=== PATIENT | male | born 1970 | race Caucasian/White ===

== ENCOUNTER 2016-07-12 08:55 | Emergency (ER) | payer OTHER, MEDICAID ==
[2016-07-12 09:03] VITALS: RESP 16
[2016-07-12 09:28] LABS: COLOR YELLOW; LEUKOCYTE ESTERASE,URINE NEGATIVE (NEGATIVE); NITRITE,URINE NEGATIVE (NEGATIVE)
[2016-07-12 09:30] LABS: MUCUS TRACE /lpf (NONE-1+)
[2016-07-12 09:31] LABS: WBC,URINE NONE SEEN /hpf (0-3)
[2016-07-12] MEDS ORDERED: NS 1,000 ML IV ONE (09:38)
[2016-07-12] MEDS ORDERED: HYDROmorphONE/DILAUDID 1 MG/ML SYR ONE (09:43)
[2016-07-12] MEDS ORDERED: ONDANSETRON 4 MG/2 ML VIAL ONE (09:43)
--- NOTE | 2016-07-12 09:44 | EDPHY ---
H & P Stated Complaint: R lower back/flank pain,radiates to R groin;intermittent x "months" Time Seen by Provider: 07/12/16 09:35 HPI/ROS: CHIEF COMPLAINT: Right testicle and right groin pain x3 days HISTORY OF PRESENT ILLNESS: 46-year-old male arrives via private vehicle to the emergency department complaining of acute right inguinal in testicle pain for the past 3 days. Atraumatic. No straddle injury. He also feels mild pain in his right flank feels that the pain originated in his testicle. No urinary abnormality. No urethral No new sexual partners. No known history of STD. No nausea or vomiting. No history of nephrolithiasis REVIEW OF SYSTEMS: A ten point review of systems was performed and is negative with the exception of the items mentioned in the HPI PAST MEDICAL & SURGICAL HISTORY: T-cell lymphoblastic leukemia in remission SOCIAL HISTORY:nonsmoker PHYSICAL EXAM (Prior to examination, patient consented to physical exam, hands were washed and my usual and customary physical exam procedures followed) 1) GENERAL: Well-developed, well-nourished, alert and oriented. Appears uncomfortable . 2) HEAD: Normocephalic, atraumatic 3) HEENT: Pupils equal, round, reactive to light bilaterally. Sclera anicteric. 4) NECK: Full range of motion, no meningeal signs. 5) LUNGS: Clear auscultation bilaterally, no wheezes, no rhonchi, no retractions. 6) HEART: Regular rate and rhythm, no murmur, no heave, no gallop. 7) ABDOMEN: No guarding, no rebound, no focal tenderness, negative McBurney's, negative Castano's, negative Rovsing's, negative peritoneal sign, 8) MUSCULOSKELETAL: Moving all extremities, no focal areas of tenderness, no obvious trauma. No peripheral edema or discoloration. 9) BACK: No CVA tenderness, no midline vertebral tenderness, no fluctuance, no step-off, no obvious trauma, no visual or palpable abnormality. Patella Achilles reflexes intact to bilateral strength 5/5. 10) SKIN: No rash, no petechiae. 11) : Circumcised no urethral discharge bilateral testicles symmetrical, no high-riding testicle, cremasteric reflex present equal bilaterally DIFFERENTIAL DIAGNOSIS: in no particular include but limited to testicular torsion, epididymitis, hernia, nephrolithiasis, acute appendicitis - Personal History Current Tetanus Diphtheria and Acellular Pertussis (TDAP): Yes Tetanus Vaccine Date: < 10 years - Medical/Surgical History Hx Asthma: No Hx Chronic Respiratory Disease: No Hx Diabetes: No Hx Cardiac Disease: No Hx Renal Disease: No Hx Cirrhosis: No Hx Alcoholism: No Hx HIV/AIDS: No Hx Splenectomy or Spleen Trauma: No Other PMH: leukemia (in remission), depression/ back prob - Social History Smoking Status: Former smoker Constitutional: Initial Vital Signs Temperature (C) 37.1 C 07/12/16 09:01 Heart Rate 86 07/12/16 09:01 Respiratory Rate 16 07/12/16 09:01 Blood Pressure 122/86 H 07/12/16 09:01 O2 Sat (%) 96 07/12/16 09:01 O2 Delivery Mode Room Air Allergies/Adverse Reactions: promethazine HCl [From Phenergan] Allergy (Intermediate, Verified 03/29/16 07:55 ) extrapyramidal sx Home Medications: Medication Instructions Recorded Hydrocodone/APAP 5/325 [[place] 1 tab PO Q6 PRN #15 tab 07/12/16 5/325 (RX)] Medical Decision Making - Diagnostics Imagin:40 a.m.: Testicular ultrasound normal per Radiology interpretation with images reviewed by myself 11:40 a.m.: CT renal study is negative for stone or acute abnormality per Radiology interpretation. Images reviewed by myself ED Course/Re-evaluation: Patient has been re-evaluated with serial exams. Discussed case Dr. Liam Wong in the ER. Most recent exam at 11:50 a.m. he is complaining of radicular like pain in his right side. We discussed the diagnostic results showing no evidence of nephrolithiasis, normal testicular ultrasound. We discussed possibility of a sciatic/radicular pain. Doubt cauda equina or spinal infectious etiology. Plan will be pain control, discharge. - Data Points Laboratory Results: Laboratory Results 07/12/16 09:33 07/12/16 09:33 07/12/16 07/12/16 09:33 09:10 WBC 7.13 10^3/uL (3.80-9.50) RBC 5.53 10^6/uL (4.40-6.38) Hgb 18.0 H g/dL (13.7-17.5) Hct 49.8 % (40.0-51.0) MCV 90.1 fL (81.5-99.8) MCH 32.5 pg (27.9-34.1) MCHC 36.1 g/dL (32.4-36.7) RDW 12.6 % (11.5-15.2) Plt Count 170 10^3/uL (150-400) MPV 9.4 fL (8.7-11.7) Neut % (Auto) 62.8 % (39.3-74.2) Lymph % (Auto) 29.2 % (15.0-45.0) [place] % (Auto) 6.0 % (4.5-13.0) Eos % (Auto) 0.8 % (0.6-7.6) Baso % (Auto) 0.6 % (0.3-1.7) Nucleat RBC Rel Count 0.0 % (0.0-0.2) Absolute Neuts (auto) 4.48 10^3/uL (1.70-6.50) Absolute Lymphs (auto) 2.08 10^3/uL (1.00-3.00) Absolute Monos (auto) 0.43 10^3/uL (0.30-0.80) Absolute Eos (auto) 0.06 10^3/uL (0.03-0.40) Absolute Basos (auto) 0.04 10^3/uL (0.02-0.10) Absolute Nucleated RBC 0.00 10^3/uL (0-0.01) Immature Gran % 0.6 % (0.0-1.1) Immature Gran # 0.04 10^3/uL (0.00-0.10) Sodium 143 mEq/L (134-144) Potassium 4.6 mEq/L (3.5-5.2) Chloride 108 mEq/L (97-110) Carbon Dioxide 22 mEq/l (22-31) Anion Gap 13 mEq/L (8-16) BUN 21 mg/dL (7-23) Creatinine 0.9 mg/dL (0.7-1.3) Estimated GFR > 60 Glucose 89 mg/dL (70-100) Calcium 9.9 mg/dL (8.5-10.4) Total Bilirubin 0.9 mg/dL (0.1-1.4) Conjugated Bilirubin 0.5 mg/dL (0.0-0.5) Unconjugated Bilirubin 0.4 mg/dL (0.0-1.1) AST 37 IU/L (17-59) ALT 85 H IU/L (21-72) Alkaline Phosphatase 75 IU/L (38-126) Total Protein 7.5 g/dL (6.3-8.2) Albumin 5.1 H g/dL (3.5-5.0) Lipase 74.0 IU/L (23-300) Urine Color YELLOW Urine Appearance CLEAR Urine pH 5.0 (5.0-7.5) Ur Specific [place] 1.024 (1.002-1.030) Urine Protein NEGATIVE (NEGATIVE) Urine Ketones NEGATIVE (NEGATIVE) Urine Blood 1+ H (NEGATIVE) Urine Nitrate NEGATIVE (NEGATIVE) Urine Bilirubin NEGATIVE (NEGATIVE) Urine Urobilinogen NEGATIVE EU (0.2-1.0) Ur Leukocyte Esterase NEGATIVE (NEGATIVE) Urine RBC 1-3 /hpf (0-3) Urine WBC NONE SEEN /hpf (0-3) Ur Epithelial Cells NONE SEEN /lpf (NONE-1+) Urine Mucus TRACE /lpf (NONE-1+) Ur Culture Indicated? NOT INDICATED (NI) Urine Glucose NEGATIVE (NEGATIVE) Medications Given: Discontinued Medications Hydromorphone HCl (Dilaudid) 1 mg IVP EDNOW ONE Stop: 07/12/16 10:03 Last Admin: 07/12/16 10:03 Dose: 1 mg Hydromorphone HCl (Dilaudid) 1 mg IVP EDNOW ONE Stop: 07/12/16 12:02 Last Admin: 07/12/16 12:20 Dose: 1 mg Sodium Chloride (Ns) 1,000 mls @ 0 mls/hr IV ONCE ONE PRN Reason: Wide Open Stop: 07/12/16 09:39 Last Admin: 07/12/16 09:39 Dose: 1,000 mls Ketorolac Tromethamine (Toradol) 30 mg IVP EDNOW ONE Stop: 07/12/16 12:02 Last Admin: 07/12/16 12:20 Dose: 30 mg Miscellaneous Medication (Gi Cocktail) 45 ml PO EDNOW ONE Stop: 07/12/16 11:58 Last Admin: 07/12/16 12:10 Dose: 45 ml Ondansetron HCl (Zofran) 4 mg IVP EDNOW ONE Stop: 07/12/16 10:03 Last Admin: 07/12/16 10:03 Dose: 4 mg Departure - Departure Disposition: Home, Routine, Self-Care Clinical Impression: Low back pain Condition: Good Instructions: Acute Low Back Pain (ED) Additional Instructions: Seek medical attention if you develop new or worsening pain, if you develop bladder or bowel dysfunction, numbness around your perineum, foot drop, or any other symptoms that concern you. Referrals: Yamila Ramon MD [Primary Care Provider] - 1-2 days without fail Prescriptions: Hydrocodone/APAP 5/325 [[place] 5/325 (RX)] 1 tab PO Q6 PRN #15 tab PRN Reason: Pain, Severe
[2016-07-12 09:46] LABS: HEMATOCRIT 49.8 % (40.0-51.0); MEAN CELL HEMOGLOBIN 32.5 pg (27.9-34.1); MEAN CELL HEMOGLOBIN CONCENTR. 36.1 g/dL (32.4-36.7); MEAN CELL VOLUME 90.1 fL (81.5-99.8); RED BLOOD CELL COUNT 5.53 10^6/uL (4.40-6.38); RED CELL DISTRIBUTION WIDTH 12.6 % (11.5-15.2)
[2016-07-12 09:47] LABS: % IMMATURE GRANULYOCYTES 0.6 % (0.0-1.1); ABSOLUTE IMMATURE GRANULOCYTES 0.04 10^3/uL (0.00-0.10); ADD DIFF? NO; ADD MORPH? NO; ADD SCAN? NO; ATYPICAL LYMPHOCYTE FLAG 10 (0-99); FRAGMENT RBC FLAG 0 (0-99); LEFT SHIFT FLG 0 (0-99); LIPEMIA HEMOLYSIS FLAG 90 (0-99); MEAN PLATELET VOLUME 9.4 fL (8.7-11.7); PLATELET CLUMPS FLAG 20 (0-99); PLATELET COUNT 170 10^3/uL (150-400)
[2016-07-12] MEDS ORDERED: HYDROmorphONE/DILAUDID 1 MG/ML SYR IVP ONE ×2 (10:02→12:01)
[2016-07-12] MEDS ORDERED: ONDANSETRON 4 MG/2 ML VIAL IVP ONE (10:02)
[2016-07-12 10:04] LABS: ALANINE AMINOTRANSFERASE 85 IU/L (21-72); ALBUMIN 5.1 g/dL (3.5-5.0); ALKALINE PHOSPHATASE 75 IU/L (38-126); ANION GAP 13 mEq/L (8-16); ASPARTATE AMINOTRANSFERASE 37 IU/L (17-59); BILIRUBIN,TOTAL 0.9 mg/dL (0.1-1.4); BILIRUBIN-CONJUGATED 0.5 mg/dL (0.0-0.5); BILIRUBIN-UNCONJUGATED 0.4 mg/dL (0.0-1.1); CALCIUM 9.9 mg/dL (8.5-10.4); CARBON DIOXIDE 22 mEq/l (22-31); CHLORIDE 108 mEq/L (97-110); CREATININE 0.9 mg/dL (0.7-1.3); GLOMERULAR FILTRATION RATE > 60; GLUCOSE 89 mg/dL (70-100); POTASSIUM 4.6 mEq/L (3.5-5.2); SODIUM 143 mEq/L (134-144); TOTAL PROTEIN 7.5 g/dL (6.3-8.2)
--- NOTE | 2016-07-12 10:45 | US ---
Testicular Ultrasound History: Testicular pain. Findings: Right testicle measures 3.5 x 1.7 x 2.2 cm and the left testicle measures 3.3 x 1.5 x 2.2 c m. Both testicles are homogeneous and demonstrate no evidence for mass. Normal blood flow to both vonda ticles. Both epididymides are normal in appearance. No evidence for varicocele. No significant hydroc jose. Impression: Normal testicular ultrasound. Results called to Mikey Serna PA-C.
--- NOTE | 2016-07-12 11:49 | CT ---
Unenhanced CT Scan of the Abdomen and Pelvis (Renal Stone Protocol) Clinical History: 46-year-old male with a history of leukemia (which is in remission) who presents to the ED complaining of right-sided flank and groin pain for two days and had normal testicular sonogr aphy earlier this morning. Evaluate for nephrolithiasis or obstructive uropathy. The patient did have microscopic hematuria on urinalysis. Technique: Neither oral, retrograde rectal, nor IV contrast was administered. A multidetector unenhan pamella helical CT scan was obtained from the lung bases inferiorly through the proximal femora, with leobardo ges reformatted at 2.50 and 1.25 mm increments, and reviewed at a variety of window and level setting s. Parasagittal and paracoronal reconstructed images are reviewed on the workstation. The DFOV is 42 cm. A dose reduction protocol was used. Comparison Studies: Limited right upper quadrant abdominal sonography, dated February 13, 2012, CT imagi ng of the abdomen and pelvis dated October 26, 2011, and March 23, 2007 (retrieved from archive [facility]). Findings: Unenhanced CT Scan of the Abdomen: There are bibasilar dependent changes, as well as areas of linear parenchymal scarring. There is no pleural or pericardial effusion. There are no hepatic, pancreatic, splenic, adrenal, renal, or ureteral calculi. There are post-appendectomy clips present. The abdomina l aorta is normal in size. There are anterior and retroaortic renal veins. There is mild constipation . There is no abnormal small bowel dilatation. The spleen is at the upper limits of normal in size, m easuring 12.0 x 4.4 x 9.8 cm. There is no pathologically enlarged retroperitoneal or mesenteric jimmy opathy. There is a stable subcentimeter cortical cyst seen exophytically in the lower pole of the rig ht kidney, unchanged from previous exams. There is no hydronephrosis or perinephric fluid. The osseou s structures are notable for severe degenerative disk disease at L2-L3 and L5-S1. Unenhanced CT Scan of the Pelvis: The urinary bladder is moderately distended. There is no evidence o f distal ureterolithiasis or urinary bladder calculi. There are some phleboliths in the left hemipelv is. The prostate gland is mildly enlarged with some central prostatic calcifications. There is no dave e fluid. The seminal vesicles are unremarkable. Some rare sigmoid colon diverticula are seen. The oss eous structures are age-appropriate. Impression: 1. There is no evidence of nephrolithiasis or obstructive uropathy. 2. Mild constipation. 3. Status post appendectomy. Results were discussed with Mikey Serna PA-C. Attention: This CT examination is specifically designed to evaluate patients who are clinically susp ected of having acute obstructive uropathy. This examination does not use radiographic contrast, and as such, provides only a limited evaluation of the abdomen, pelvis, and retroperitoneum. If there i s further clinical suspicion for pathological conditions other than obstructive uropathy, a complete CT evaluation of the abdomen and pelvis utilizing intravenous, oral, and rectal contrast should be co nsidered. A test result has been communicated to a licensed care provider and documented in Mathew, 11:34:01 Kameron Cruz, 07/12/2016, [facility] Message ID [id number].
[2016-07-12] MEDS ORDERED: MAALOX/LIDO/HYOSC GI COCKTAIL 55 ML BOTTLE PO ONE (11:57)
[2016-07-12] MEDS ORDERED: KETOROLAC 30 MG/1 ML SDV IVP ONE (12:01)
[2016-07-12 13:05] VITALS: BP 130/76; PULSE 84; TEMP 98.1; O2SAT 93
== END 2016-07-12 13:18 | disposition home or self-care (01) ==
DX: M54.5 Low back pain (principal); Z87.891 Personal history of nicotine dependence
CPT/HCPCS: 74176; 76870; 93976; 96374; 96375; 96376; 99285; J1170; J1885; J2405

== ENCOUNTER 2016-11-17 10:33 | Emergency (ER) | payer MEDICAID ==
[2016-11-17 10:41] VITALS: O2SAT 99
[2016-11-17] MEDS ORDERED: HYDROCODONE/APAP 5/325 TAB PO ONE (11:25)
--- NOTE | 2016-11-17 11:28 | EDPHY ---
H & P Time Seen by Provider: 11/17/16 11:10 HPI/ROS: HPI: 46-year-old gentleman with chronic back pain well known to the ED presents to ED with chief concern neck and back pain that onset acutely yesterday. He sneezed and developed mid neck discomfort that extends into his upper thoracic spine. He has associated posterior right arm radiculopathy that radiates to his elbow. He did not fall or incur other trauma. Denies fever, chills, myalgias, dizziness, headache, URI symptoms, shortness of breath, chest pain, nausea, vomiting. He has chronic low back pain, and has had neck pain many times in the past, last time 6 weeks ago. He uses ibuprofen with some improvement at home for discomfort. Primary care provider Dr. Yamila Ramon ROS:10 point review of systems is negative other than as stated in HPI Past Medical/Surgical History: Chronic back pain, leukemia in remission x4 years Smoking Status: Former smoker Physical Exam: Vital signs stable, reviewed by me Constitutional: Alert, calm, cooperative. No acute distress. HEENT: Head normocephalic. PERRLA, EOMI. No pallor or injection. TMs pearly- faye without bulging or retraction. Nasal mucosa pink and moist. Pharynx without redness or evidence of tonsillar exudates. Neck: Supple, nontender. Full range of motion. Negative Kernig or Brudzinski's. Respiratory: Breathing unlabored. Lungs clear to auscultation bilaterally. Cardiovascular: Heart rate regular. S1-S2. No murmur, rub, or gallop. DP/PT pulses 2+ bilaterally. Gastrointestinal: Abdomen soft, nontender. Bowel sounds normoactive x4 quadrants. Neuro: Biceps and triceps DTRs 2+ bilaterally. Patellar and Achilles DTRs 2+ bilaterally. Strength 5+ in all extremities. No point tenderness to palpation of cervical, thoracic, or lumbar spine. Left and right paraspinous muscles with tenderness to palpation. No evidence of radiculopathy on straight leg raise bilaterally. Sensation intact to soft and pinprick in all regions of both legs and feet bilaterally. Constitutional: Initial Vital Signs Temperature (C) 36.8 C 11/17/16 10:37 Heart Rate 90 11/17/16 10:37 Respiratory Rate 18 11/17/16 10:37 Blood Pressure 133/77 H 11/17/16 10:37 O2 Sat (%) 99 11/17/16 10:37 O2 Delivery Mode Room Air Allergies/Adverse Reactions: promethazine HCl [From Phenergan] Allergy (Intermediate, Verified 11/17/16 10:41 ) extrapyramidal sx Home Medications: Medication Instructions Recorded Gabapentin 11/17/16 Hydrocodone/Acetaminophen [[place] 1 - 2 tab PO Q6H PRN #16 tab 11/17/16 5/325 (*)] Medical Decision Making ED Course/Re-evaluation: 46-year-old male presents to ED with acute onset neck and back pain that onset after he sneezed yesterday. There was no trauma. He has no fever, nausea, or vomiting. He has a history of chronic back pain, at times including his neck. He has a history of leukemia. This has been in remission x4 years. As there was no trauma, there is no significant midline tenderness, and symptoms onset acutely yesterday in the absence of fever, imaging will not be performed. He has a follow-up appointment with his primary care provider on Monday. Differential Diagnosis: Differential diagnosis includes but is not limited to musculoskeletal strain, diskitis, abscess, fracture, CA Departure - Departure Disposition: Home, Routine, Self-Care Clinical Impression: Neck pain Thoracic back pain Qualifiers: Chronicity: acute Back pain laterality: bilateral Qualified Code(s): M54.6 - Pain in thoracic spine Condition: Good Instructions: Back Pain (ED), Acute Neck Pain (ED) Additional Instructions: Plan: Follow up with primary care Monday for recheck without fail Continue to use ibuprofen as you have been at home-may use 600 mg every 6 hours with food, stay well hydrated while using For severe pain may use 1-2 [place] every 6 hours--Never drink or drive while taking this medication. This medication impairs decision making capacity so do not work or sign important documents while taking. This medication its constipating so drink plenty of fluids and consider an [id number] stool softener such as docusate sodium (Colace) while taking this medication. This medication has addictive properties. You should use the least amount for the shortest amount of time. [facility] do not refill narcotic pain medication prescriptions. This is a hospital policy. You will need to follow up as indicated for recheck for further narcotic refills. If you develop fever, vomiting return promptly for recheck Referrals: Yamila Ramon MD [Primary Care Provider] - As per Instructions Prescriptions: Hydrocodone/Acetaminophen [[place] 5/325 (*)] 1 - 2 tab PO Q6H PRN #16 tab PRN Reason: Pain, Moderate
[2016-11-17 11:49] VITALS: BP 119/80; PULSE 71; RESP 16; TEMP 97.9
== END 2016-11-17 11:50 | disposition home or self-care (01) ==
DX: M54.2 Cervicalgia (principal); M54.6 Pain in thoracic spine; Z87.891 Personal history of nicotine dependence

== ENCOUNTER 2016-12-31 07:39 | Emergency (ER) | payer MEDICAID ==
--- NOTE | 2016-12-31 07:50 | EDPHY ---
H & P Stated Complaint: Back pain Time Seen by Provider: 12/31/16 07:49 - Personal History Current Tetanus/Diphtheria Vaccine: Yes Current Tetanus Diphtheria and Acellular Pertussis (TDAP): Yes Tetanus Vaccine Date: 2015 - Medical/Surgical History Hx Asthma: No Hx Chronic Respiratory Disease: No Hx Diabetes: No Hx Cardiac Disease: No Hx Renal Disease: No Hx Cirrhosis: No Hx Alcoholism: No Hx HIV/AIDS: No Hx Splenectomy or Spleen Trauma: No Other PMH: ALL (in remission), depression, chronic back prob - Social History Smoking Status: Former smoker Constitutional: Initial Vital Signs Temperature (C) 36.5 C 12/31/16 07:42 Heart Rate 85 12/31/16 07:42 Respiratory Rate 17 12/31/16 07:42 Blood Pressure 133/85 H 12/31/16 07:42 O2 Sat (%) 97 12/31/16 07:42 O2 Delivery Mode Room Air Allergies/Adverse Reactions: promethazine HCl [From Phenergan] Allergy (Intermediate, Verified 11/17/16 10:41 ) extrapyramidal sx Home Medications: Medication Instructions Recorded Gabapentin 11/17/16 Hydrocodone/Acetaminophen [[place] 1 - 2 tab PO Q6H PRN #16 tab 11/17/16 5/325 (*)] Cyclobenzaprine [Flexeril 10 MG 10 mg PO TID PRN #15 tab 12/31/16 (*)] Ibuprofen [Motrin] 800 mg PO Q8 #20 tab 12/31/16 oxyCODONE IR [Oxycodone Ir (*)] 5 - 10 mg PO Q6 PRN #20 tab 12/31/16 Medical Decision Making ED Course/Re-evaluation: CHIEF COMPLAINT: Back pain with radiculopathy HISTORY OF PRESENT ILLNESS: The patient is a 46 y/o male, with a history of chronic back pain and ALL, complaining of back pain with right-sided radiculopathy onset last night. He cannot identify an obvious precipitating cause. His pain extends down posterior thigh, calf, and into toes with dull aching along anterior thigh. His right leg also feels weak, but he has been able to walk despite the pain. He denies bowel or bladder symptoms. He says he saw neurosurgeon a few years ago for this back pain and had imaging done, but never heard the results or received further follow up. Additionally, he notes he has started to see petechiae on his arms and legs that look similar to skin symptoms he had while his ALL was active. He denies pruritic rash or other allergic symptoms. REVIEW OF SYSTEMS: A 10 point review of systems was performed and is negative with the exception of the elements mentioned in the history of present illness. PHYSICAL EXAM: HR, BP, O2 Sat, RR. Temp noted General Appearance: Alert, well hydrated, appropriate, and non-toxic appearing. Head: Atraumatic without scalp tenderness or obvious injury Eyes: Pupils equal, round, reactive to light and accommodation, EOMI, no trauma , no injection. Nose: Atraumatic, no rhinorrhea, clear. Throat: mucus membranes moist. Neck: Supple, nontender, no lymphadenopathy. Respiratory: No retractions, no distress, no wheezes, and no accessory muscle use. Lungs are clear to auscultation bilaterally. Cardiovascular: Regular rate and rhythm, no murmurs, rubs, or gallops. Good capillary refill all extremities. Gastrointestinal: Abdomen is soft, nontender, non-distended, no masses, no rebound, no guarding, no peritoneal signs. Musculoskeletal: Normal active ROM of all extremities, atraumatic. Neurological: Alert, appropriate, and interactive. The patient has normal DTRs and non-focal cranial nerves, motor, sensory, and cerebellar exam. Skin: No rashes, good turgor, no nodules on palpation. Small, red, non- blanching macular spots located diffusely on all limbs. 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 MEDICAL DECISION MAKING: This is a 46 y/o male with a history of chronic back pain and ALL that is currently in remission presenting with a 12-hour history of worsening lower back pain and new associated right leg radiculopathy. His exam is mostly unremarkable with the exception of diffuse, small, erythematous, and non- blanching macules on his skin. He reports these are similar to petechiae he had while his ALL was active. His neuro exam is normal. Plan for symptomatic treatment with 800mg PO ibuprofen and 1 tab Percocet in addition to basic labs including CBC, CHEM, and LFT to review platelet counts. Platelets slightly low at 139. I discussed this with the patient. He will receive scripts for ibuprofen and OxyIR and recommendation to follow up with a neurosurgeon next week. Return precautions given. He is comfortable with this plan. - Data Points Laboratory Results: Laboratory Results 12/31/16 08:40 12/31/16 08:40 12/31/16 12/31/16 08:40 08:40 WBC 5.49 10^3/uL 10^3/uL (3.80-9.50) RBC 5.46 10^6/uL 10^6/uL (4.40-6.38) Hgb 17.3 g/dL g/dL (13.7-17.5) Hct 48.6 % % (40.0-51.0) MCV 89.0 fL fL (81.5-99.8) MCH 31.7 pg pg (27.9-34.1) MCHC 35.6 g/dL g/dL (32.4-36.7) RDW 12.9 % % (11.5-15.2) Plt Count 139 10^3/uL L 10^3/uL (150-400) MPV 9.5 fL fL (8.7-11.7) Neut % (Auto) 57.3 % % (39.3-74.2) Lymph % (Auto) 32.6 % % (15.0-45.0) [place] % (Auto) 8.0 % % (4.5-13.0) Eos % (Auto) 0.7 % % (0.6-7.6) Baso % (Auto) 0.9 % % (0.3-1.7) Nucleat RBC Rel Count 0.0 % % (0.0-0.2) Absolute Neuts (auto) 3.14 10^3/uL 10^3/uL (1.70-6.50) Absolute Lymphs (auto) 1.79 10^3/uL 10^3/uL (1.00-3.00) Absolute Monos (auto) 0.44 10^3/uL 10^3/uL (0.30-0.80) Absolute Eos (auto) 0.04 10^3/uL 10^3/uL (0.03-0.40) Absolute Basos (auto) 0.05 10^3/uL 10^3/uL (0.02-0.10) Absolute Nucleated RBC 0.00 10^3/uL 10^3/uL (0-0.01) Immature Gran % 0.5 % % (0.0-1.1) Immature Gran # 0.03 10^3/uL 10^3/uL (0.00-0.10) Sodium 145 mEq/L H mEq/L (134-144) Potassium 4.0 mEq/L mEq/L (3.5-5.2) Chloride 108 mEq/L mEq/L (97-110) Carbon Dioxide 23 mEq/l mEq/l (22-31) Anion Gap 14 mEq/L mEq/L (8-16) BUN 25 mg/dL H mg/dL (7-23) Creatinine 1.0 mg/dL mg/dL (0.7-1.3) Estimated GFR > 60 Glucose 91 mg/dL mg/dL (70-100) Calcium 10.6 mg/dL H mg/dL (8.5-10.4) Total Bilirubin 1.0 mg/dL mg/dL (0.1-1.4) Conjugated Bilirubin 0.4 mg/dL mg/dL (0.0-0.5) Unconjugated Bilirubin 0.6 mg/dL mg/dL (0.0-1.1) AST 35 IU/L IU/L (17-59) ALT 77 IU/L H IU/L (21-72) Alkaline Phosphatase 57 IU/L IU/L (38-126) Total Protein 7.8 g/dL g/dL (6.3-8.2) Albumin 5.1 g/dL H g/dL (3.5-5.0) Medications Given: Discontinued Medications Ibuprofen (Motrin) 800 mg PO EDNOW ONE Stop: 12/31/16 08:25 Last Admin: 12/31/16 08:45 Dose: 800 mg Oxycodone/Acetaminophen (Percocet 5/325) 2 tab PO EDNOW ONE Stop: 12/31/16 08:25 Last Admin: 12/31/16 08:46 Dose: 2 tab Departure - Departure Disposition: Home, Routine, Self-Care Clinical Impression: Lumbar back pain with radiculopathy affecting right lower extremity Condition: Good Instructions: Lumbar Radiculopathy (ED) Additional Instructions: 1. Take 800mg ibuprofen every 6-8 hours as needed for pain over the next 5-7 days. 2. Take OxyIR as prescribed if needed for severe pain. 3. If you are willing to take steroids, I recommend taking 40mg prednisone daily for 5 days. 4. Follow up with Dr. Hyman, neurosurgeon, next week for further evaluation of your pain. 5. Return to the ED for bowel or bladder incontinence, leg weakness, or other worsening of condition. Referrals: NONE *PRIMARY CARE P,. [Primary Care Provider] - As per Instructions Enmanuel Hyman MD [Medical Doctor] - As per Instructions Prescriptions: Cyclobenzaprine [Flexeril 10 MG (*)] 10 mg PO TID PRN #15 tab PRN Reason: Spasms Ibuprofen [Motrin] 800 mg PO Q8 #20 tab oxyCODONE IR [Oxycodone Ir (*)] 5 - 10 mg PO Q6 PRN #20 tab PRN Reason: Pain, Severe Report Scribed for: Ry Tam Report Scribed by: Radha Deal Date of Report: 12/31/16 Time of Report: 08:29
[2016-12-31] MEDS ORDERED: OXYCODONE/APAP 5/325 TAB PO ONE (08:24)
[2016-12-31] MEDS ORDERED: IBUPROFEN 800 MG TAB PO ONE (08:24)
[2016-12-31] MEDS ORDERED: IBUPROFEN 200 MG TAB PO ONE (08:34)
[2016-12-31 08:51] LABS: % IMMATURE GRANULYOCYTES 0.5 % (0.0-1.1); ABSOLUTE IMMATURE GRANULOCYTES 0.03 10^3/uL (0.00-0.10); ADD DIFF? NO; ADD MORPH? NO; ADD SCAN? NO; ATYPICAL LYMPHOCYTE FLAG 10 (0-99); FRAGMENT RBC FLAG 0 (0-99); HEMATOCRIT 48.6 % (40.0-51.0); HEMOGLOBIN 17.3 g/dL (13.7-17.5); LEFT SHIFT FLG 0 (0-99); LIPEMIA HEMOLYSIS FLAG 90 (0-99); MEAN CELL HEMOGLOBIN 31.7 pg (27.9-34.1); MEAN CELL HEMOGLOBIN CONCENTR. 35.6 g/dL (32.4-36.7); MEAN PLATELET VOLUME 9.5 fL (8.7-11.7); PLATELET CLUMPS FLAG 0 (0-99); PLATELET COUNT 139 10^3/uL (150-400); RED BLOOD CELL COUNT 5.46 10^6/uL (4.40-6.38); RED CELL DISTRIBUTION WIDTH 12.9 % (11.5-15.2)
[2016-12-31 09:11] LABS: ALANINE AMINOTRANSFERASE 77 IU/L (21-72); ALBUMIN 5.1 g/dL (3.5-5.0); ALKALINE PHOSPHATASE 57 IU/L (38-126); ANION GAP 14 mEq/L (8-16); ASPARTATE AMINOTRANSFERASE 35 IU/L (17-59); BILIRUBIN-CONJUGATED 0.4 mg/dL (0.0-0.5); BILIRUBIN-UNCONJUGATED 0.6 mg/dL (0.0-1.1); CALCIUM 10.6 mg/dL (8.5-10.4); CARBON DIOXIDE 23 mEq/l (22-31); CHLORIDE 108 mEq/L (97-110); GLOMERULAR FILTRATION RATE > 60; GLUCOSE 91 mg/dL (70-100); SODIUM 145 mEq/L (134-144); TOTAL PROTEIN 7.8 g/dL (6.3-8.2)
[2016-12-31 09:49] VITALS: BP 119/76; PULSE 64; RESP 15; TEMP 98.8; O2SAT 93
== END 2016-12-31 09:48 | disposition home or self-care (01) ==
DX: M54.16 Radiculopathy, lumbar region (principal); Z87.891 Personal history of nicotine dependence

== ENCOUNTER 2017-02-25 07:44 | Emergency (ER) | payer MEDICAID ==
[2017-02-25] MEDS ORDERED: OXYCODONE/APAP 5/325 TAB PO ONE (08:23)
[2017-02-25] MEDS ORDERED: KETOROLAC 15 MG/1 ML SDV IM ONE (08:23)
--- NOTE | 2017-02-25 08:28 | EDPHY ---
H & P Stated Complaint: Chronic lower back pain "'twisted wrong" Source: Patient Exam Limitations: No limitations - Personal History Current Tetanus Diphtheria and Acellular Pertussis (TDAP): Yes Tetanus Vaccine Date: 2015 - Medical/Surgical History Hx Asthma: No Hx Chronic Respiratory Disease: No Hx Diabetes: No Hx Cardiac Disease: No Hx Renal Disease: No Hx Cirrhosis: No Hx Alcoholism: No Hx HIV/AIDS: No Hx Splenectomy or Spleen Trauma: No Other PMH: ALL (in remission), depression, chronic back pain - Social History Smoking Status: Former smoker Time Seen by Provider: 02/25/17 08:03 HPI/ROS: CHIEF COMPLAINT: low back pain HISTORY OF PRESENT ILLNESS: 47-year-old male presents emergency department complaining of acute on chronic low back pain. Patient states he has a known herniated discs and has been told by Neurosurgery he can have surgery. Patient states about once per month his back "goes out". He reports constant low back pain though yesterday he was reaching up to grab a glass out of his covered and twisting and he had worsening left-sided low back pain and spasms. He denies radiation down his legs, no loss of control of his bowel or bladder, no numbness to his groin. He denies leg weakness. Patient reports ibuprofen is not helpful. He denies abdominal pain, chest pain or shortness of breath. No fevers. REVIEW OF SYSTEMS: A comprehensive 10 point review of systems is otherwise negative aside from elements mentioned in the history of present illness. (Nallely Kitchen) - Physical Exam Exam: Physical Exam Gen: Alert and Oriented, NAD HEENT: PERRL, moist mucous membranes NECK: no meningismus CV: regular rate and regular rhythm PULM: CTAB, no wheezes ABDOMEN: soft, non tender to palpation, BS present, no mass BACK: Midline lumbar tenderness to palpation, bilateral lumbar paraspinal tenderness to palpation, bilateral SI joint tenderness to palpation NEURO: Neurologically grossly intact, 2/4 deep tendon reflexes patellar and Achilles, 5/5 strength bilateral lower extremities, negative straight leg raise. EXTREMITIES: normal appearing SKIN: no rash or break in skin on exposed skin PSYCH: answers questions appropriately. (Nallely Kitchen) Constitutional: Initial Vital Signs Temperature (C) 36.8 C 02/25/17 07:51 Heart Rate 87 02/25/17 07:51 Respiratory Rate 14 02/25/17 07:51 Blood Pressure 153/94 H 02/25/17 07:51 O2 Sat (%) 95 02/25/17 07:51 O2 Delivery Mode Room Air Allergies/Adverse Reactions: promethazine HCl [From Phenergan] Allergy (Intermediate, Verified 11/17/16 10:41 ) extrapyramidal sx Home Medications: Medication Instructions Recorded Gabapentin 11/17/16 Ibuprofen [Motrin] 800 mg PO Q8 #20 tab 12/31/16 Lidocaine 5% [Lidoderm 5% Patch 1 ea TD DAILY #5 patch 02/25/17 (*)] Methocarbamol [Robaxin-750] 750 - 1,500 mg PO QID PRN #20 02/25/17 tablet Medical Decision Making ED Course/Re-evaluation: Patient with no evidence of cauda equina syndrome or spinal abscess. A lidocaine patch was placed, she was given IM Toradol and a oral methocarbamol. Patient is discharged with a prescription for lidocaine patches and methocarbamol. I have discussed with him the importance of following up with his primary care doctor to get a referral for physical therapy which I think will be very helpful for his discomfort. Patient is given return precautions for any neurovascular compromise. (Nallely Kitchen) Differential Diagnosis: The differential diagnosis for the patient's back pain included but was not limited to musculo-skeletal pain, epidural abscess, herniated disk, spinal fracture, cauda equina and intra-abdominal causes including urinary system. ( Nallely Kitchen) Other Provider: The patient was evaluated and managed by the Physician Turf Manager. My co- signature indicates that I have reviewed this chart and I agree with the findings and plan of care as documented. I am the secondary supervising physician. (Yovana Chavez) - Data Points Medications Given: Discontinued Medications Ketorolac Tromethamine (Toradol) 30 mg IM EDNOW ONE Stop: 02/25/17 08:24 Last Admin: 02/25/17 08:31 Dose: 30 mg Lidocaine (Lidoderm 5%) 1 ea TD DAILY KARMEN Stop: 08/24/17 08:59 Last Admin: 02/25/17 08:31 Dose: 1 ea Oxycodone/Acetaminophen (Percocet 5/325) 1 tab PO EDNOW ONE Stop: 02/25/17 08:24 Last Admin: 02/25/17 08:31 Dose: 1 tab Departure - Departure Disposition: Home, Routine, Self-Care Clinical Impression: Acute exacerbation of chronic low back pain Condition: Good Instructions: Chronic Back Pain (ED), Lower Back Exercises (ED) Additional Instructions: Take 600 mg of ibuprofen 3 times per day with food, takes methocarbamol every 8 hours as needed for muscle spasms. Use lidocaine patches as directed as needed. Ice or heat whichever feels better, gentle range of motion exercises, core strengthening exercises daily. Follow up with [facility] for referral to physical therapy. Return to the emergency department for any loss of control of your bowel or bladder, numbness to your groin, fevers. Referrals: [facility],. [Clinic] - As per Instructions Prescriptions: Lidocaine 5% [Lidoderm 5% Patch (*)] 1 ea TD DAILY #5 patch Methocarbamol [Robaxin-750] 750 - 1,500 mg PO QID PRN #20 tablet PRN Reason: Spasms
[2017-02-25 08:40] VITALS: BP 139/89; PULSE 81; RESP 16; TEMP 97.5; O2SAT 98
[2017-02-25] MEDS ORDERED: LIDOCAINE 5% 1 EA PATCH TD SCH (09:00)
[2017-02-25] MEDS ORDERED: PATCH REMOVAL 1 EA PATCH TD SCH (21:00)
== END 2017-02-25 08:43 | disposition home or self-care (01) ==
DX: S39.92XA Unspecified injury of lower back, initial encounter (principal); G89.29 Other chronic pain; Z87.891 Personal history of nicotine dependence; X50.9XXA Other and unspecified overexertion or strenuous movements or postures, initial encounter; Y99.8 Other external cause status; Y93.89 Activity, other specified
CPT/HCPCS: J1885

== ENCOUNTER 2017-07-25 12:11 | Emergency (ER) | payer MEDICAID ==
[2017-07-25 13:33] VITALS: TEMP 98.1
[2017-07-25] MEDS ORDERED: ALBUTEROL 3 ML DEYVIAL IH ONE (14:13)
[2017-07-25] MEDS ORDERED: IPRATROPIUM/ALBUTEROL 3 ML DEYVIAL IH ONE (14:13)
[2017-07-25] MEDS ORDERED: methylPREDNISolone SOD SUCC 125 MG/2 ML VIAL IVP ONE (14:13)
[2017-07-25] MEDS ORDERED: NS 1,000 ML IV ONE (14:13)
--- NOTE | 2017-07-25 14:13 | EDPHY ---
H & P Stated Complaint: flu like symptoms Time Seen by Provider: 07/25/17 13:41 HPI/ROS: CHIEF COMPLAINT: "I have a really bad cough and it's become really hurtful" HISTORY OF PRESENT ILLNESS: The patient is a 47 y/o male with a history of leukemia currently in remission complaining of a persistent cough over the last 13 days. He initially developed a fever, nasal congestion, and sneezing and then a subsequent cough. His last measured fever was 5 days ago. He says, "I can 't stop coughing," though he is feeling almost too weak to cough now. He has associated right anterior pleuritic rib pain when coughing and sometimes produces dark green phlegm. He had minor alleviation with OTC cough medications. He denies respiratory disease or cardiac disease history. No sore throat, chills, chest pain, shortness of breath, palpitations, vomiting , diarrhea, urinary complaints, headache, lightheadedness. REVIEW OF SYSTEMS: Aside from elements discussed in the HPI, a comprehensive 10-point review of systems was reviewed and is negative. PAST MEDICAL HISTORY: 1. Chronic back pain 2. ALL - in remission SOCIAL HISTORY: Nonsmoker. Lives in [place]. Disabled. VITAL SIGNS: Reviewed by me. 94% on room air. GENERAL: Well-developed, well-nourished, resting comfortably in no respiratory distress. HEENT: Atraumatic. Eyes: No icterus, no injection. Mouth: moist mucous membranes. Pharyngeal erythema, no lesions. Neck: supple with no adenopathy. LUNGS: Coarse lungs sounds with mild expiratory wheezes. No rhonchi or rales. CARDIAC: Regular rate and rhythm, no rubs, murmurs or gallops. ABDOMEN: Soft, nontender, nondistended, bowel sounds normal. BACK: No CVA tenderness. EXTREMITIES: No trauma. No edema. Range of motion is normal throughout. NEURO: Alert and oriented, grossly nonfocal. SKIN: Warm and dry, no rash. PSYCHIATRIC: Normal mentation, no agitation. Portions of this note were transcribed by a biomedical photographer. I personally performed a history, physical exam, medical decision making, and confirmed accuracy of information the transcribed note. - Personal History Current Tetanus/Diphtheria Vaccine: Yes Current Tetanus Diphtheria and Acellular Pertussis (TDAP): Yes Tetanus Vaccine Date: 2015 - Medical/Surgical History Hx Asthma: No Hx Chronic Respiratory Disease: No Hx Diabetes: No Hx Cardiac Disease: No Hx Renal Disease: No Hx Cirrhosis: No Hx Alcoholism: No Hx HIV/AIDS: No Hx Splenectomy or Spleen Trauma: No Other PMH: ALL (in remission), depression, chronic back pain - Social History Smoking Status: Former smoker Constitutional: Initial Vital Signs Temperature (C) 36.9 C 07/25/17 12:29 Heart Rate 78 07/25/17 12:29 Respiratory Rate 16 07/25/17 12:29 Blood Pressure 137/97 H 07/25/17 12:29 O2 Sat (%) 94 07/25/17 12:29 O2 Delivery Mode Room Air Allergies/Adverse Reactions: promethazine HCl [From Phenergan] Allergy (Intermediate, Verified 07/25/17 12:28 ) extrapyramidal sx Home Medications: Medication Instructions Recorded Gabapentin 11/17/16 Ibuprofen [Motrin] 800 mg PO Q8 #20 tab 12/31/16 AZITHROMYCIN [Z-PACK] 250 - 500 mg PO DAILY #6 tab 07/25/17 Albuterol Hfa Anes Only [Proair 2 puffs IH QID #1 mdi 07/25/17 Hfa Anes Only] Benzonatate [Tessalon Pearles (RX)] 100 mg PO TID PRN #20 cap 07/25/17 Hydrocodone/APAP 5/325 [[place] 1 tab PO Q6H PRN #10 tab 07/25/17 5/325 (RX)] predniSONE [prednisone 10mg (RX)] 40 mg PO DAILY 3 Days tab 07/25/17 Medical Decision Making - Diagnostics Imaging: I viewed and interpreted images myself ED Course/Re-evaluation: This is a 47 y/o male with a history of ALL currently in remission who presents with a 13-day history of persistent cough with pleuritic right-sided rib pain. He has coarse breath sounds and mild expiratory wheezes. Presentation is indicative of URI or possibly flu. Plan for IV, CBC to check cell counts, flu swab, chest x-ray, and symptom management. Duo neb, 125mg IV Solumedrol, and 1L IV NS administered. Chest x-ray: bronchitis. Atelectasis is unchanged from prior x-ray. Albuterol neb administered. Reassessed patient and discussed work up. His x-ray shows bronchitis, no infiltrate. Cell counts look good. He will be discharged with scripts for Z-pack , albuterol inhaler, and Tessalon Perls with standard bronchitis care and follow up instructions. He has Decadron at home that he will use in lieu of the prednisone I offered. Return precautions discussed. He is comfortable with this plan. Differential Diagnosis: Differential diagnosis for the patient's cough was considered including but not limited to viral versus bacterial bronchitis, asthma, COPD, upper respiratory infection, lower respiratory infection, influenza, and bronchospasm. - Data Points Laboratory Results: Laboratory Results 07/25/17 14:15 07/25/17 14:15 Medications Given: Discontinued Medications Albuterol (Proventil Neb) 3 ml IH EDNOW ONE Stop: 07/25/17 14:14 Last Admin: 07/25/17 14:34 Dose: 3 ml Albuterol/Ipratropium (Duoneb) 3 ml IH EDNOW ONE Stop: 07/25/17 14:14 Last Admin: 07/25/17 14:34 Dose: 3 ml Sodium Chloride (Ns) 1,000 mls @ 0 mls/hr IV ONCE ONE; Wide Open PRN Reason: Protocol Stop: 07/25/17 14:14 Last Admin: 07/25/17 14:34 Dose: 1,000 mls Methylprednisolone Sodium Succinate (Solu-Medrol) 125 mg IVP EDNOW ONE Stop: 07/25/17 14:14 Last Admin: 07/25/17 14:34 Dose: 125 mg Departure - Departure Disposition: Home, Routine, Self-Care Clinical Impression: Acute bronchitis Qualifiers: Bronchitis organism: unspecified organism Qualified Code(s): J20.9 - Acute bronchitis, unspecified Condition: Good Instructions: Benzonatate (By mouth), Albuterol (By breathing), Azithromycin ( By mouth), Acute Bronchitis (ED) Additional Instructions: 1. Take azithromycin as prescribed. Be sure to complete the entire prescription even if you feel better. 2. Use albuterol inhaler as prescribed for coughing and shortness of breath. 3. Use Tessalon Perls as prescribed for cough. You have also been given hydrocodone tablets which will be helpful for cough especially at night. 4. Take 4-8mg of your Decadron daily for 3 days. 5. Take ibuprofen and Tylenol as directed on the packaging for pain or fever over the next few days. 6. Follow up with your primary care provider for unimproved symptoms over the next 3-5 days. 7. Return to the ED for worsening of condition. Referrals: [facility],. [Clinic] - As per Instructions Prescriptions: Albuterol Hfa Anes Only [Proair Hfa Anes Only] 2 puffs IH QID #1 mdi AZITHROMYCIN [Z-PACK] 250 - 500 mg PO DAILY #6 tab Benzonatate [Tessalon Pearles (RX)] 100 mg PO TID PRN #20 cap PRN Reason: Cough Hydrocodone/APAP 5/325 [[place] 5/325 (RX)] 1 tab PO Q6H PRN #10 tab PRN Reason: Pain predniSONE [prednisone 10mg (RX)] 40 mg PO DAILY 3 Days tab Report Scribed for: Yovana Chavez Report Scribed by: Radha Deal Date of Report: 07/25/17 Time of Report: 14:13
[2017-07-25 14:42] LABS: PLATELET COUNT 251 10^3/uL (150-400)
[2017-07-25 15:06] VITALS: PULSE 65; O2SAT 98
[2017-07-25 15:19] VITALS: BP 159/99; RESP 18
== END 2017-07-25 15:24 | disposition home or self-care (01) ==
DX: J20.9 Acute bronchitis, unspecified (principal); E86.9 Volume depletion, unspecified; Z87.891 Personal history of nicotine dependence
CPT/HCPCS: 96374; J2930; J7613

== ENCOUNTER 2017-10-31 11:36 | Emergency (ER) | payer MEDICAID ==
[2017-10-31 11:43] VITALS: BP 141/92
--- NOTE | 2017-10-31 12:26 | EDPHY ---
General Time Seen by Provider: 10/31/17 12:21 Narrative: CHIEF COMPLAINT: Back pain HISTORY OF PRESENT ILLNESS: The patient complains of 2 days history of back pain. This is lower back and radiating to the right side. Gradual onset. Constant duration. He thinks this started while he was washing dishes. He has a history of back pain over the past 5 years, when he was 1st diagnosed leukemia. He has no numbness or tingling. He has no weakness. No incontinence of bowel or bladder. No difficulty ambulating. He has significant pain when doing any kind of movement or palpation. No trauma or injury. No history of IV drug abuse. No fever. No recent surgery or spinal injections per no other associated complaints or modifying factors. REVIEW OF SYSTEMS: Ten systems reviewed and are negative unless otherwise noted in the HPI PCP: [facility] SPECIALISTS: None currently PAST MEDICAL HISTORY: Leukemia, chronic back pain, Raynaud's phenomenon PAST SURGICAL HISTORY: No recent surgeries SOCIAL HISTORY: Lives and works here independently. FAMILY HISTORY: Noncontributory EXAMINATION General Appearance: Alert, no distress Head: normocephalic, atraumatic Eyes: Pupils equal and round, no conjunctival pallor or injection ENT, Mouth: Mucous membranes moist Neck: Normal inspection, supple, non-tender Respiratory: No retractions or distress. Back: Tenderness of the lumbar spine, primarily right of midline. No crepitus , step-off or deformity. Neurological: A&O, nonfocal, normal gait. Patellar reflexes symmetric. Strength of the knees and ankles is symmetric at 5/5. Strength of the great toe symmetric. No footdrop Skin: Warm and dry, no rash. No petechiae or purpura. No fluctuance or cellulitis overlying the spine Extremities: Nontender, no pedal edema Psychiatric: Mood and affect normal DIFFERENTIAL DIAGNOSES: Including but not limited to symmetric range of motion extremities. MDM: 12:40 p.m. Acute lumbar back pain with right-sided radiculopathy, but no evidence of acute cord compression or cauda equina. He is fully ambulatory without assistance. He is neuro intact. I have run a HEAV[employer] DUTY TRUCK MECHANIC report on the patient and his information is accurate. I do feel he would benefit from short course of oral medications topical lidocaine patches. He has instructions to contact [facility] and to discuss the possibility of referral to Neurosurgery/spine orthopedist. We discussed ED precautions for worsening pain, numbness, tingling, weakness, continence of bowel or bladder. He is comfortable this plan and discharged home stable condition. SUPERVISION: This patient was independently evaluated without direct involvement of or examination by the attending physician. - History Smoking Status: Former smoker - Objective Vital Signs: Initial Vital Signs Temperature (C) 97.5 F 10/31/17 11:41 Heart Rate 80 10/31/17 11:41 Respiratory Rate 16 10/31/17 11:41 Blood Pressure 141/92 H 10/31/17 11:41 O2 Sat (%) 97 10/31/17 11:41 O2 Delivery Mode Room Air Allergies/Adverse Reactions: promethazine HCl [From Phenergan] Allergy (Intermediate, Verified 07/25/17 12:28 ) extrapyramidal sx Home Medications: Medication Instructions Recorded Gabapentin 11/17/16 Ibuprofen [Motrin] 800 mg PO Q8 #20 tab 12/31/16 Cyclobenzaprine [Flexeril 10 MG 10 mg PO TID PRN #15 tab 10/31/17 (*)] Hydrocodone/APAP 5/325 [[place] 1 - 2 tab PO Q4H PRN #7 tab 10/31/17 5/325 (*)] Departure - Departure Disposition: Home, Routine, Self-Care Clinical Impression: Lumbar radiculopathy, acute Condition: Good Instructions: Hydrocodone/Acetaminophen (By mouth), Cyclobenzaprine (By mouth) , Acute Low Back Pain (ED), Lower Back Exercises (ED) Additional Instructions: 1. Dexamethasone 8 mg by mouth once daily today and tomorrow. Then 4 mg once daily on and Monday and then stop 2. Pain medication as prescribed as needed 3. Flexeril as prescribed as needed 4. Contact [facility] for outpatient follow-up and to discuss referral to a substance abuse specialist 5. Topical lidocaine patches [id number] as discussed 6. ED precautions as discussed Referrals: [facility],. [Clinic] - As per Instructions Enmanuel Hyman MD [Medical Doctor] - As per Instructions Prescriptions: Cyclobenzaprine [Flexeril 10 MG (*)] 10 mg PO TID PRN #15 tab PRN Reason: Spasms Hydrocodone/APAP 5/325 [[place] 5/325 (*)] 1 - 2 tab PO Q4H PRN #7 tab PRN Reason: Pain, Moderate
== END 2017-10-31 13:04 | disposition home or self-care (01) ==
DX: M54.16 Radiculopathy, lumbar region (principal); Z87.891 Personal history of nicotine dependence